=== PATIENT | male | born 1945 | race Caucasian/White ===

== ENCOUNTER 2019-09-13 11:00 | Inpatient (IN) | payer MEDICARE ==
[2019-09-15 12:25] LABS: PTT 30.7 SEC (22.9-36.1); Prothrombin Time 13.5 SEC (12.0-14.7)
[2019-09-16] MEDS ORDERED: Vancomycin 1.5 GRAM/300 ML BAG 1.5 GM in Premix Bag 1 BAG IVPB SCH (06:30)
[2019-09-16] MEDS ORDERED: Albumin 5% 0 ML ONE ×2 (06:32→12:02)
[2019-09-16] MEDS ORDERED: Dexamethasone 4 mg/ml Vial ONE (06:32)
[2019-09-16] MEDS ORDERED: Bupivacaine HCl 0.5%/Epinephrine 1:200,000/PF 30 ml Vial ONE (06:32)
[2019-09-16] MEDS ORDERED: Midazolam HCl 2 mg/2 ml Vial ONE (06:36)
[2019-09-16] MEDS ORDERED: Midazolam HCl 5 mg/5 ml Vial ONE (06:36)
[2019-09-16] MEDS ORDERED: Fentanyl 100 MCG/2 ML VIAL ONE (06:36)
[2019-09-16] MEDS ORDERED: Dexmedetomidine 200 MCG/2 ML VIAL ONE (06:37)
[2019-09-16] MEDS ORDERED: Vecuronium 10 MG VIAL ONE ×2 (06:37→13:53)
[2019-09-16] MEDS ORDERED: Heparin 10,000 UNITS/1 ML VIAL 30,000 UNITS in Sodium Chloride 0.9% 1,000 ML FS SCH (06:45)
[2019-09-16] MEDS ORDERED: Guaifenesin DM 100-10/5 ML UDCUP PO PRN (12:00)
[2019-09-16] MEDS ORDERED: hydrALAZINE 20 MG/ML VIAL SLOW IVP PRN (12:00)
[2019-09-16] MEDS ORDERED: Fentanyl 100 MCG/2 ML VIAL SLOW IVP PRN ×2 (12:00)
[2019-09-16] MEDS ORDERED: Nitroglycerin 50 MG/250 ML BOT 250 ML IVPB PRN (12:00)
[2019-09-16] MEDS ORDERED: Potassium Chloride 20 MEQ/100 ML PREMIX BAG IVPB PRN (12:00)
[2019-09-16] MEDS ORDERED: Norepinephrine 8 MG/0.9% NS 250 ML IVPB PRN (12:00)
[2019-09-16] MEDS ORDERED: DOPamine 400 MG/D5W 250 ML 250 ML IVPB PRN (12:00)
[2019-09-16] MEDS ORDERED: Magnesium 2 GM/50 ML 2 GM in Premix Bag 1 BAG IVPB SCH (12:00)
[2019-09-16] MEDS ORDERED: D5 1/2 NS w/20 mEq KCL 1,000 ML IV SCH (12:00)
[2019-09-16] MEDS ORDERED: Bisacodyl 10 MG SUPP PR PRN (12:00)
[2019-09-16] MEDS ORDERED: Mag-Al 1200 mg/1200 mg/30 ML UDCUP PO PRN (12:00)
[2019-09-16] MEDS ORDERED: Morphine 2 MG/ML SYRINGE SLOW IVP PRN (12:00)
[2019-09-16] MEDS ORDERED: Hetastarch 6% 500 ML 500 ML IVPB PRN (12:00)
[2019-09-16] MEDS ORDERED: Bisacodyl 5 MG TAB PO PRN (12:00)
[2019-09-16] MEDS ORDERED: Promethazine HCl 25 MG/ML VIAL IM PRN (12:00)
[2019-09-16] MEDS ORDERED: D5 1/2 NS w/20 mEq KCL 1,000 ML ONE (12:10)
[2019-09-16] MEDS ORDERED: Dextrose 5% in Water 1,000 ML IV PRN (12:13)
[2019-09-16] MEDS ORDERED: HUMULIN R 100 UNITS in Sodium Chloride 0.9% 100 ML IVPB SCH (12:13)
[2019-09-16] MEDS ORDERED: Insulin Regular 300 UNITS/3 ML VIAL SC PRN (12:13)
[2019-09-16] MEDS ORDERED: Dextrose 50% Abboject 50 ML SYRINGE SLOW IVP PRN (12:13)
[2019-09-16 12:15] LABS: #Eosinphils 0.1 thou/uL (0.0-0.7); #Lymphocytes 2.2 thou/uL (1.20-3.40); #Monocytes 0.6 thou/uL (0.11-0.59); #Neutrophils 15.8 thou/uL (1.40-6.50); %Basophils 0.2 % (0.0-1.0); %Eosinophils 0.5 % (0.0-10.0); %Lymphocytes 11.8 % (21.0-51.0); %Monocytes 3.4 % (0.0-10.0); %Neutrophils 84.3 % (42.0-75.0); Mean Corpuscular HGB CONC 34.9 g/dL (32.0-36.0); Mean Corpuscular Hemoglobin 31.8 pg (27.0-31.0); Mean Corpuscular Volume 91.1 fL (78.0-98.0); Platelet Count 131 thou/uL (130-400); Red Blood Cell (RBC) Count 3.47 mill/uL (4.70-6.10); White Blood Cell (WBC) Count 18.7 thou/uL (4.8-10.8)
[2019-09-16 12:19] LABS: INR-International Normal Ratio 1.5; PTT 35.4 SEC (22.9-36.1); Prothrombin Time 17.9 SEC (12.0-14.7)
--- NOTE | 2019-09-16 12:20 | OP ---
DATE OF PROCEDURE: 09/16/2019 PREOPERATIVE DIAGNOSIS: Aortic stenosis/coronary artery disease. POSTOPERATIVE DIAGNOSIS: Aortic stenosis/coronary artery disease. PROCEDURES PERFORMED: 1. Aortic valve replacement with #29 Inspiris bioprosthetic valve. 2. Coronary artery bypass grafting x3. a. Left internal mammary artery to 2.0 mm mid LAD, good conduit and target. b. Reverse saphenous vein to 2.0 mm PDA, good conduit and target. c. Reverse saphenous vein to 1.5 mm acute marginal, good conduit and target. INSTRUCTOR ADJUNCT SURGICAL TECHNICIAN SURGEON: Nithin Taylor MD. ANESTHESIA: General endotracheal. ANESTHESIOLOGIST: Jose Her MD. PUMP TIME: 114 minutes. CROSS-CLAMP TIME: 91 minutes. LOW CORE TEMPERATURE: 34 degrees Celsius perfuse. CURRICULUM COUNSELOR: Frankie Angela. DRAINS: 24-Djiboutian chest tubes x2. DRIPS: None. TRANSFUSIONS: None. DESCRIPTION OF PROCEDURE: After consent was obtained, the patient was brought to the operating room and placed in supine position on the operating room table. Appropriate central line and monitors were placed, and general endotracheal anesthesia was induced. Chest and legs were prepped and draped in the usual sterile fashion. Greater saphenous vein was harvested from the left lower extremity utilizing an endoscopic technique. Wounds were again closed in layers. Median sternotomy was performed. Left internal mammary artery was harvested as a pedicle graft. The patient was systemically heparinized. The distal pedicle was divided and infused with papaverine. Thymic fat and pericardium were divided with electrocautery. Pericardial stay sutures were placed. Aortic and atrial cannulation was performed. After adequate heparinization, retrograde prime was performed. The patient was placed on cardiopulmonary bypass. Distal targets were marked. Aortic cross-clamp was applied and antegrade sanguineous cardioplegic arrest was obtained. 1 L of antegrade cold [place] cardioplegia was given. Topical cold solution was used. Reverse saphenous vein was anastomosed to the PDA in an end-to-side fashion with running 7-0 Prolene suture. Anastomosis was tested and was hemostatic. The PL territory was explored. There was no bypassable target. The appearance of the acute marginal may have been what we were calling the PL on his films. Therefore, the acute marginal was bypassed with a 2nd segment of saphenous vein. The mammary artery was brought through a window in the pericardium and anastomosed to the LAD with a running 7-0 Prolene suture. On release of mammary clamps, good hooding of the anastomosis and good distal flow. Pedicle was secured with interrupted 6-0 Prolene suture. The mammary artery was re-clamped with a bulldog. 300 mL of antegrade [place] cardioplegia was given. A sump drain was placed through the right superior pulmonary vein. CO2 was infused in the pericardium. A Transverse hockey-stick aortotomy was performed. Aortic valve was inspected. This was a 3 leaflet valve with fused left and right commissures. The valve was heavily calcified. The valve leaflets were debrided. The annulus was decalcified. The valve measured as a 29 Inspiris valve. The valve was brought to the operative field. Pledgeted 2-0 Ethibond sutures were placed in the anulus and passed through the suturing of the valve. The valve was seated and secured with Cor-Knots. The valve seated nicely. The aortotomy was closed in a 2-layer running fashion with pledgeted 4-0 Prolene suture. Bio glue was used on the suture line. The PDA graft was anastomosed to punch site in the aorta with running 6-0 Prolene suture. Deairing maneuvers were performed. After deairing via SHANTANU, the patient was placed in Trendelenburg and the cross-clamp removed. The acute marginal graft was anastomosed to the side wall of the PDA graft. The grafts were deaired. Anastomoses were inspected and were hemostasis. The aortic suture line was hemostatic. The patient was warmed and weaned from cardiopulmonary bypass. After resumption of sinus rhythm, good hemodynamics, temperature greater than 36.5, bypass was discontinued. Transfusions were given. Decannulation was performed. The pursestring suture was secured. 24-Djiboutian chest tubes were placed, one in the mediastinum and one in the left pleural cavity. After adequate hemostasis had been obtained within the mediastinum, the sternum was treated with vancomycin paste and closed with #7 wire. Sternum was treated with platelet rich plasma. Wire was twisted and buried. Wounds were irrigated and treated with platelet poor plasma and closed in multiple layers. Needle, sponge, and instrument counts were all reported as correct at the end of the procedure. The patient was awakened, extubated in the operating room, transferred to the intensive care unit in stable condition. Job ID: [id number] [facility]
[2019-09-16 12:36] LABS: Anion Gap 8 mmol/L (10-20); BUN (Urea Nitrogen) 17 mg/dL (8.4-25.7); Calc. Creatinine Clearance 92 mL/min (70-130); Calcium 6.9 mg/dL (7.8-10.44); Carbon Dioxide 22 mmol/L (23-31); Chloride 114 mmol/L (98-107); Estimated GFR-MDRD 77; Glucose 153 mg/dL (83-110); Potassium 4.2 mmol/L (3.5-5.1); Sodium 140 mmol/L (136-145)
[2019-09-16] MEDS: Ketorolac Tromethamine 30 MG/ML VIAL IVP SCH ×3 (12:52→23:51)
--- NOTE | 2019-09-16 13:50 | RAD ---
PORTABLE CHEST 1 VIEW: Date: 09/16/19 Time: 1146 hours HISTORY: Postop open heart surgery. FINDINGS/IMPRESSION: Comparison made with exam from previous day. Interval changes of median sternotomy and valvular replacement seen. The heart size is stable. There is mild pulmonary vascular congestion. There is a right subclavian central line with tip in the proje ction of the right atrium. Left-sided chest tube is noted. There is mild pulmonary vascular congestio n. No pneumothoraces or large effusions are seen. POS: [facility]
[2019-09-16] MEDS ORDERED: Ondansetron PF 4 MG/2 ML Vial ONE (13:53)
[2019-09-16] MEDS ORDERED: Heparin 5,000 UNITS/ML VIAL ONE (13:53)
[2019-09-16] MEDS ORDERED: Sodium Bicarb 50 MEQ/50 ML Abboject 8.4% SYRINGE ONE (13:53)
[2019-09-16] MEDS ORDERED: Glycopyrrolate 0.2 MG/ML 5 ML SYRINGE ONE (13:53)
[2019-09-16] MEDS ORDERED: Lidocaine 1% PF 5 ML VIAL ONE (13:53)
[2019-09-16] MEDS ORDERED: Heparin 30,000 units/30 ml VIAL ONE (13:53)
[2019-09-16] MEDS ORDERED: Magnesium Sulfate 1 GM/2 ML VIAL ONE (13:53)
[2019-09-16] MEDS ORDERED: Nitroglycerin 50 MG/250 ML BOT ONE (13:53)
[2019-09-16] MEDS ORDERED: Lidocaine 2% PF 5 ML VIAL ONE (13:53)
[2019-09-16] MEDS ORDERED: Dexamethasone 20 MG/5 ML VIAL ONE (13:53)
[2019-09-16] MEDS ORDERED: Papaverine 60 MG/2 ML VIAL ONE (13:53)
[2019-09-16] MEDS ORDERED: Thrombin 5000 UNITS/5 ML VIAL ONE (13:53)
[2019-09-16] MEDS ORDERED: PHENYLEPHRINE-NS 100 MCG/ML 10 ML SYRINGE ONE (13:53)
[2019-09-16] MEDS ORDERED: Calcium Chloride 1 GM/10 ML Abboject SYRINGE ONE (13:53)
[2019-09-16] MEDS ORDERED: Ketorolac Tromethamine 30 MG/ML VIAL ONE (13:53)
[2019-09-16] MEDS ORDERED: ePHEDrine/0.9% NaCl/PF SYRINGE 50 mg/10 ml ONE (13:53)
[2019-09-16] MEDS ORDERED: Potassium Chloride 60 MEQ/30 ML VIAL ONE (13:53)
[2019-09-16] MEDS ORDERED: Aminocaproic Acid 5 GM/20 ML VIAL ONE (13:53)
[2019-09-16] MEDS ORDERED: Cardioplegic Soln 1,000 ML BAG ONE (13:53)
[2019-09-16 14:09] VITALS: BMI 27.9
[2019-09-16] MEDS: CEFAZOLIN 2 GM in Premix Bag 1 BAG IVPB SCH ×2 (14:10→21:04)
[2019-09-16] MEDS: Ondansetron PF 4 MG/2 ML Vial IVP PRN (14:25)
[2019-09-16] MEDS: Acetaminophen 325 MG TAB PO PRN (16:44)
[2019-09-16] MEDS: Vancomycin 1.5 GRAM/300 ML BAG 1.5 GM in Premix Bag 1 BAG IVPB SCH (17:59)
[2019-09-16 18:01] LABS: Hemoglobin 11.5 g/dL (14.0-18.0)
[2019-09-16 18:19] LABS: Potassium 4.6 mmol/L (3.5-5.1)
[2019-09-16] MEDS: traMADol HCl 50 MG TAB PO PRN (20:56)
[2019-09-16] MEDS ORDERED: Famotidine/PF 20 mg/2ml Vial SLOW IVP SCH (21:00)
[2019-09-17] MEDS: traMADol HCl 50 MG TAB PO PRN ×3 (03:04→23:58)
[2019-09-17 03:26] LABS: #Lymphocytes 0.6 thou/uL (1.20-3.40); #Monocytes 0.7 thou/uL (0.11-0.59); #Neutrophils 8.8 thou/uL (1.40-6.50); %Lymphocytes 5.6 % (21.0-51.0); %Monocytes 6.8 % (0.0-10.0); %Neutrophils 87.6 % (42.0-75.0); Hemoglobin 9.7 g/dL (14.0-18.0); Mean Corpuscular HGB CONC 34.2 g/dL (32.0-36.0); Mean Corpuscular Volume 90.5 fL (78.0-98.0); Platelet Count 105 thou/uL (130-400); RBC Distribution Width 11.8 % (11.5-14.5); Red Blood Cell (RBC) Count 3.12 mill/uL (4.70-6.10); White Blood Cell (WBC) Count 10.1 thou/uL (4.8-10.8)
[2019-09-17 03:50] LABS: Anion Gap 8 mmol/L (10-20); BUN (Urea Nitrogen) 15 mg/dL (8.4-25.7); Calc. Creatinine Clearance 85 mL/min (70-130); Calcium 8.2 mg/dL (7.8-10.44); Carbon Dioxide 25 mmol/L (23-31); Chloride 109 mmol/L (98-107); Estimated GFR-MDRD 70; Glucose 128 mg/dL (83-110); Potassium 4.4 mmol/L (3.5-5.1); Sodium 138 mmol/L (136-145)
[2019-09-17] MEDS: Ketorolac Tromethamine 30 MG/ML VIAL IVP SCH ×4 (05:23→23:57)
[2019-09-17] MEDS: CEFAZOLIN 2 GM in Premix Bag 1 BAG IVPB SCH (05:24)
[2019-09-17] MEDS: Vancomycin 1.5 GRAM/300 ML BAG 1.5 GM in Premix Bag 1 BAG IVPB SCH (05:25)
--- NOTE | 2019-09-17 07:58 | RAD ---
Chest AP view INDICATION: Status post open-heart surgery COMPARISON: September 16, 2019 at 11:46 AM FINDINGS: Lungs:There is worsening bibasilar atelectasis Cardiac silhouette:Cardiomegaly persists. Valvular replacement and midline sternotomy changes are sta ble. Pulmonary vasculature:Mild pulmonary vascular congestion persists Pleural spaces:There is worsening small left pleural effusion. No pneumothorax is evident. Left-sided thoracostomy tube is unchanged. Upper abdomen:No abnormality seen. Osseous structures: No acute osseous abnormality. Additional findings:Right subclavian central venous catheter and midline mediastinal drain is stable. IMPRESSION: Worsening left sided pleural effusion with worsening bibasilar atelectasis. Stable cardio megaly with mild pulmonary vascular congestion. Stable tubes and lines.
[2019-09-17] MEDS: Aspirin 325 MG TAB PO SCH (08:23)
[2019-09-17] MEDS: Magnesium 2 GM/50 ML 2 GM in Premix Bag 1 BAG IVPB SCH (08:23)
[2019-09-17] MEDS: Acetaminophen 325 MG TAB PO PRN (08:23)
--- NOTE | 2019-09-17 09:14 | CON ---
DATE OF CONSULTATION: HISTORY OF PRESENT ILLNESS: A 73-year-old gentleman, status post AVR. He is in the ICU post surgery, reason for consult. The patient is a nonsmoker. No prior history of pneumonia, TB, or asthma. Very healthy. PAST MEDICAL HISTORY: Pertinent for prostate cancer. PAST SURGICAL HISTORY: Appendix and prostate. CHRONIC MEDICATIONS: 1. Omeprazole 20. 2. Lupron 3.75. ALLERGIES: NONE. SOCIAL HISTORY: Unremarkable. FAMILY HISTORY: Unremarkable. PHYSICAL EXAMINATION: GENERAL: In the ICU, he is on dopamine. VITAL SIGNS: Blood pressure 120/80, pulse 71, sats 98%, and respirations 18. CHEST: No wheezing or crackles. CARDIAC: Normal S1 and S2. No gallops. ABDOMEN: No masses. LABORATORY DATA: Lytes are normal. White count 10,000, hemoglobin and hematocrit unremarkable. X-ray shows small pleural effusion. IMPRESSION: 1. The patient is status post aortic valve replacement and bypass x3. 2. History of prostate cancer. 3. Hypertension. PLAN: Continue aggressive PT, supportive care. Pulmonary will follow while in the ICU. Consultation note, 70 minutes, 50% of direct patient care. Job ID: [id number]
[2019-09-17] MEDS: Ondansetron PF 4 MG/2 ML Vial IVP PRN (16:30)
--- NOTE | 2019-09-17 16:55 | PDOC.CPN ---
- Subjective Date: 09/17/19 Time: 15:00 - Review of Systems Respiratory: denies: cough, shortness of breath Cardiovascular: reports: chest pain (Cpain due to surgery,mainly back pain) Gastrointestinal: denies: nausea, abd pain Musculoskeletal: reports: pain - Objective Allergies/Adverse Reactions: Allergies Allergy/AdvReac Type Severity Reaction Status Date / Time No Known Allergies Allergy Verified 09/15/19 11:21 Visit Medications: Current Medications Acetaminophen (Tylenol) 650 mg PO Q6H PRN PRN Reason: Headache/Fever Or Mild Pain Last Admin: 09/17/19 08:23 Dose: 650 mg Al Hydroxide/Mg Hydroxide (Maalox) 30 ml PO Q4H PRN PRN Reason: Indigestion Albumin Human (Albumin 5%) 25 gm IVPB NOW [facility] Stop: 09/17/19 18:45 Last Admin: 09/17/19 14:46 Dose: 25 gm Albuterol/Ipratropium (Duoneb) 3 ml NEB [id number] PRN PRN Reason: SHORTNESS OF BREATH Aspirin (Aspirin) 325 mg PO DAILY [facility] Last Admin: 09/17/19 08:23 Dose: 325 mg Bisacodyl (Dulcolax) 10 mg PO Q12H PRN PRN Reason: Constipation Last Admin: 09/17/19 16:50 Dose: 10 mg Bisacodyl (Dulcolax) 10 mg [place] Q12H PRN PRN Reason: Constipation Fentanyl (Sublimaze) 25 mcg SLOW IVP Q2H PRN PRN Reason: Moderate Pain (4-6) Stop: 09/18/19 11:50 Fentanyl (Sublimaze) 50 mcg SLOW IVP Q2H PRN PRN Reason: Severe Pain (7-10) Stop: 09/18/19 11:50 Guaifenesin/Dextromethorphan (Robitussin Dm) 15 ml PO Q4H PRN PRN Reason: Cough Hydralazine HCl (Apresoline) 10 mg SLOW IVP Q6H PRN PRN Reason: To Maintain SBP< 140mmHG Dopamine HCl/Dextrose (Dopamine 400 Mg/D5w 250 Ml) 250 mls @ 0 mls/hr IVPB PRN PRN; Protocol PRN Reason: To maintain SBP > 90 mmHG Last Admin: 09/16/19 14:31 Dose: 250 mls Magnesium Sulfate 2 gm/ Device 50 mls @ 50 mls/hr IVPB QAM [facility] Stop: 09/18/19 09:59 Last Admin: 09/17/19 08:23 Dose: 50 mls Ketorolac Tromethamine (Toradol) 30 mg IVP Q6HR [facility] Stop: 09/19/19 12:01 Last Admin: 09/17/19 12:01 Dose: 30 mg Ondansetron HCl (Zofran) 4 mg IVP Q6H PRN PRN Reason: Nausea/Vomiting Last Admin: 09/17/19 16:30 Dose: 4 mg Pantoprazole Sodium (Protonix) 40 mg PO DAILY [facility] Last Admin: 09/17/19 08:22 Dose: 40 mg Potassium Chloride (Kcl) 20 meq IVPB PRN PRN PRN Reason: K level </= 4.0 Promethazine HCl (Phenergan) 6.25 mg IM Q4H PRN PRN Reason: Nausea/Vomiting Sodium Chloride (Flush - Normal Saline) 10 ml IVF PRN PRN PRN Reason: Saline Flush Tramadol HCl (Ultram) 50 mg PO Q6H PRN PRN Reason: Pain Last Admin: 09/17/19 16:49 Dose: 50 mg Vital Signs & Weight: Vital Signs Temp Pulse Ox 09/17/19 12:00 98.7 F 09/17/19 08:00 99 09/17/19 07:08 97 09/17/19 07:00 98.5 F Weight 211 lb 3.245 oz - Quality Measures Condition: Coronary Artery Disease CV meds: Beta Arthur: No (start when BP stable. ), GALEN/ARB: No (as above), Statin: No, ASA: No - Physical Exam HEENT: mucus membranes moist Neck: no JVD/HJR Cardiac: regular rate and rhythm, no murmur, regular rate, regular rhythm Lungs: no wheezes, no rhonchi, other (decreased BS bases L>R) Neuro: grossly intact Abdomen: soft, decreased bowel sounds Extremities: no edema Musculoskeletal: normal range of motion - Labs Result Diagrams: 09/17/19 03:10 09/17/19 03:10 - Telemetry Sinus rhythms and dysrhythmias: sinus rhythm - Assessment/Plan Assessment/Plan: 1. S/P AVR + CABG. for 3 vessel CAD and severe . #29 AVR implanted. Bioprosthetic valve. Start low dose betablockers when BP tolerates. 2. Mildly elevated BS.
[2019-09-18 04:30] LABS: #Monocytes 0.6 thou/uL (0.11-0.59); #Neutrophils 6.1 thou/uL (1.40-6.50); %Basophils 0.1 % (0.0-1.0); %Eosinophils 0.4 % (0.0-10.0); %Lymphocytes 12.4 % (21.0-51.0); %Monocytes 7.7 % (0.0-10.0); %Neutrophils 79.4 % (42.0-75.0); Hemoglobin 8.3 g/dL (14.0-18.0); Mean Corpuscular HGB CONC 35.1 g/dL (32.0-36.0); Mean Corpuscular Hemoglobin 32.4 pg (27.0-31.0); Mean Corpuscular Volume 92.1 fL (78.0-98.0); Mean Platelet Volume 8.1 fL (7.4-10.4); Platelet Count 78 thou/uL (130-400); Red Blood Cell (RBC) Count 2.56 mill/uL (4.70-6.10); White Blood Cell (WBC) Count 7.7 thou/uL (4.8-10.8)
[2019-09-18 04:45] LABS: Anion Gap 8 mmol/L (10-20); BUN (Urea Nitrogen) 19 mg/dL (8.4-25.7); Calc. Creatinine Clearance 71 mL/min (70-130); Calcium 7.9 mg/dL (7.8-10.44); Carbon Dioxide 24 mmol/L (23-31); Chloride 105 mmol/L (98-107); Estimated GFR-MDRD 53; Glucose 103 mg/dL (83-110); Sodium 133 mmol/L (136-145)
[2019-09-18] MEDS: Ketorolac Tromethamine 30 MG/ML VIAL IVP SCH (06:26)
--- NOTE | 2019-09-18 08:53 | PRG ---
DATE OF SERVICE: 09/18/2019 SUBJECTIVE: Status post CABG, AVR, still having significant chest pain, but no shortness of breath. OBJECTIVE: VITAL SIGNS: Blood pressure 136/80, pulse 80, respirations 18. CHEST: Decreased breath sounds. No wheezing. CARDIAC: Normal S1 and S2. No gallops. ABDOMEN: No masses. LABORATORY DATA: Creatinine 1.3. White count 7000. IMAGING STUDIES: X-ray shows blunting left costophrenic angle. ASSESSMENT: Coronary artery bypass graft, aortic valve replacement, postoperative pain. PLAN: Continue supportive care, PT, neb treatments as tolerated. Disposition as per Surgery. Job ID: [id number]
--- NOTE | 2019-09-18 09:50 | RAD ---
CHEST 1 VIEW: COMPARISON: 09/17/2019. HISTORY: Status post open heart surgery. FINDINGS: Redemonstration of prosthetic aortic valve, sternotomy wires, and right-sided vascular catheter. Per sistent bibasilar hazy opacities due to pleural effusion. Adjacent parenchymal changes may represent atelectasis or aspiration. Pneumonia cannot be excluded. No pneumothorax. IMPRESSION: Findings compatible with recent open heart surgery. Persistent bibasilar opacities as described [place]. POS: [facility]
[2019-09-18] MEDS: traMADol HCl 50 MG TAB PO PRN ×2 (09:56→20:38)
[2019-09-18] MEDS: Magnesium 2 GM/50 ML 2 GM in Premix Bag 1 BAG IVPB SCH (09:57)
[2019-09-18] MEDS: Aspirin 325 MG TAB PO SCH (09:58)
--- NOTE | 2019-09-18 11:07 | PRG ---
DATE OF SERVICE: 09/18/2019 SUBJECTIVE: Mr. Varghese is resting comfortably. He underwent bypass surgery previously. He is recovering from that. No chest pain or pressure unless he takes a deep breath. OBJECTIVE: VITAL SIGNS: Blood pressure 136/80, pulse 80. LUNGS: Clear. CARDIAC: Normal S1, normal S2. ASSESSMENT AND PLAN: 1. Status post bypass surgery, doing well. 2. Continue aspirin, also receiving magnesium, still on low-dose dopamine. According to the notes, the patient continues to recover. Job ID: [id number]
[2019-09-18] MEDS ORDERED: Metolazone 5 MG TAB PO SCH (11:38)
[2019-09-18] MEDS: Furosemide 40 MG/4 ML VIAL SLOW IVP SCH (14:14)
[2019-09-18] MEDS: Potassium Chloride 20 MEQ TAB PO SCH (17:34)
[2019-09-18] MEDS: Iron Polysaccharides Complex 150 MG CAP PO SCH (20:39)
[2019-09-19] MEDS: traMADol HCl 50 MG TAB PO PRN ×3 (03:40→21:10)
[2019-09-19] MEDS: Furosemide 40 MG/4 ML VIAL SLOW IVP SCH ×2 (05:28→14:12)
[2019-09-19 06:02] LABS: Anion Gap 9 mmol/L (10-20); BUN (Urea Nitrogen) 20 mg/dL (8.4-25.7); Calc. Creatinine Clearance 78 mL/min (70-130); Calcium 8.5 mg/dL (7.8-10.44); Carbon Dioxide 28 mmol/L (23-31); Chloride 102 mmol/L (98-107); Estimated GFR-MDRD 61; Glucose 102 mg/dL (83-110); Potassium 4.3 mmol/L (3.5-5.1); Sodium 135 mmol/L (136-145)
[2019-09-19] MEDS: Potassium Chloride 20 MEQ TAB PO SCH ×2 (08:10→16:32)
[2019-09-19] MEDS: Aspirin 325 MG TAB PO SCH (08:10)
[2019-09-19 08:26] LABS: #Eosinphils 0.1 thou/uL (0.0-0.7); #Lymphocytes 0.8 thou/uL (1.20-3.40); #Monocytes 0.7 thou/uL (0.11-0.59); #Neutrophils 6.9 thou/uL (1.40-6.50); %Basophils 0.2 % (0.0-1.0); %Eosinophils 0.7 % (0.0-10.0); %Lymphocytes 9.6 % (21.0-51.0); %Neutrophils 81.4 % (42.0-75.0); Hemoglobin 9.6 g/dL (14.0-18.0); Mean Corpuscular HGB CONC 34.6 g/dL (32.0-36.0); Mean Corpuscular Hemoglobin 31.1 pg (27.0-31.0); Mean Corpuscular Volume 90.1 fL (78.0-98.0); Mean Platelet Volume 8.4 fL (7.4-10.4); Platelet Count 116 thou/uL (130-400); Red Blood Cell (RBC) Count 3.09 mill/uL (4.70-6.10); White Blood Cell (WBC) Count 8.5 thou/uL (4.8-10.8)
--- NOTE | 2019-09-19 10:20 | RAD ---
Exam: Chest one view HISTORY:Status post open heart surgery Comparison: 09/18/2019 FINDINGS: Cardiac silhouette:Persistent upper normal cardiac silhouette. Stable sternotomy wires, aortic valve and right-sided central venous catheter. Aorta: Unremarkable Pulmonary vessels: Normal Costophrenic angles: Persistent left-sided pleural effusion with adjacent parenchymal changes. LUNGS: Persistent bibasilar opacities. Pneumothorax: None Osseous abnormalities: None IMPRESSION: 1. No significant interval change. 2. Findings compatible with recent open heart surgery.
[2019-09-19] MEDS: Iron Polysaccharides Complex 150 MG CAP PO SCH ×2 (12:57→21:10)
--- NOTE | 2019-09-19 13:04 | PRG ---
DATE OF SERVICE: 09/19/2019 SUBJECTIVE: This morning, he is doing better and less short of breath. OBJECTIVE: VITAL SIGNS: Saturations are 98% on room air, temperature 98, pulse 115, blood pressure 104/56. CHEST: Decreased breath sounds. No wheezing. CARDIAC: Normal S1 and S2. No gallops. ABDOMEN: No masses. LABORATORY DATA: Unremarkable. X-ray shows a small left pleural effusion. ASSESSMENT: Left pleural effusion, status post coronary artery bypass graft and aortic valve replacement. PLAN: Continue present neb treatment as needed. We will follow. Job ID: [id number]
--- NOTE | 2019-09-19 16:18 | EKG ---
Test Reason : S/P CABG Blood Pressure : / mmHG Vent. Rate : 057 BPM Atrial Rate : 057 BPM P-R Int : 188 ms QRS Dur : 114 ms QT Int : 494 ms P-R-T Axes : 027 -46 091 degrees QTc Int : 480 ms Sinus bradycardia Left anterior fascicular block Left ventricular hypertrophy with repolarization abnormality Prolonged QT Abnormal ECG When compared with ECG of 25-NOV-2010 07:21, Significant changes have occurred Confirmed by DR. Yadira GARCIA ([id number]) on 09/19/2019 4:17:46 PM Referred By: HILL MILLER Confirmed By:DR. Yadira GARCIA
[2019-09-20] MEDS: Furosemide 40 MG/4 ML VIAL SLOW IVP SCH (05:58)
[2019-09-20 06:39] LABS: #Eosinphils 0.1 thou/uL (0.0-0.7); #Lymphocytes 1.1 thou/uL (1.20-3.40); #Monocytes 0.9 thou/uL (0.11-0.59); %Basophils 0.2 % (0.0-1.0); %Eosinophils 1.6 % (0.0-10.0); %Lymphocytes 13.5 % (21.0-51.0); %Monocytes 10.5 % (0.0-10.0); %Neutrophils 74.2 % (42.0-75.0); Hemoglobin 9.7 g/dL (14.0-18.0); Mean Corpuscular HGB CONC 34.6 g/dL (32.0-36.0); Mean Corpuscular Volume 89.6 fL (78.0-98.0); Mean Platelet Volume 8.4 fL (7.4-10.4); Platelet Count 149 thou/uL (130-400); Red Blood Cell (RBC) Count 3.14 mill/uL (4.70-6.10)
[2019-09-20 07:02] LABS: Anion Gap 9 mmol/L (10-20); BUN (Urea Nitrogen) 24 mg/dL (8.4-25.7); Calc. Creatinine Clearance 72 mL/min (70-130); Calcium 9.1 mg/dL (7.8-10.44); Carbon Dioxide 31 mmol/L (23-31); Chloride 97 mmol/L (98-107); Estimated GFR-MDRD 59; Glucose 99 mg/dL (83-110); Potassium 4.2 mmol/L (3.5-5.1); Sodium 133 mmol/L (136-145)
--- NOTE | 2019-09-20 08:01 | RAD ---
FRONTAL RADIOGRAPH CHEST: DATE: 09/20/2019. COMPARISON: 09/19/2019. HISTORY: Evaluate chest following midline sternotomy. FINDINGS: Persistent dense pleural and parenchymal opacity noted in the left lung base. Stable right-sided vas cular catheter. No pneumothorax. Right lung is clear. Stable midline sternotomy wires. Mechanical valve unchanged. IMPRESSION: No significant interval change. POS: [facility]
[2019-09-20] MEDS: Potassium Chloride 20 MEQ TAB PO SCH (09:11)
[2019-09-20] MEDS: traMADol HCl 50 MG TAB PO PRN ×3 (09:12→23:54)
[2019-09-20] MEDS: Aspirin 325 MG TAB PO SCH (09:12)
--- NOTE | 2019-09-20 09:14 | PDOC.CPN ---
- Subjective Date: 09/20/19 Time: 08:30 Interval history: The pt seen and examined. No overnight events. No cardiac complaints. Urine outpt yesterday was > 3000ml. - Objective Allergies/Adverse Reactions: Allergies Allergy/AdvReac Type Severity Reaction Status Date / Time No Known Allergies Allergy Verified 09/15/19 11:21 Visit Medications: Current Medications Al Hydroxide/Mg Hydroxide (Maalox) 30 ml PO Q4H PRN PRN Reason: Indigestion Albuterol/Ipratropium (Duoneb) 3 ml NEB [id number] PRN PRN Reason: SHORTNESS OF BREATH Aspirin (Aspirin) 325 mg PO DAILY [facility] Last Admin: 09/19/19 08:10 Dose: 325 mg Bisacodyl (Dulcolax) 10 mg PO Q12H PRN PRN Reason: Constipation Last Admin: 09/17/19 16:50 Dose: 10 mg Bisacodyl (Dulcolax) 10 mg [place] Q12H PRN PRN Reason: Constipation Furosemide (Lasix) 40 mg SLOW IVP 0600,1400 [facility] Last Admin: 09/20/19 05:58 Dose: 40 mg Guaifenesin/Dextromethorphan (Robitussin Dm) 15 ml PO Q4H PRN PRN Reason: Cough Ondansetron HCl (Zofran) 4 mg IVP Q6H PRN PRN Reason: Nausea/Vomiting Last Admin: 09/17/19 16:30 Dose: 4 mg Pantoprazole Sodium (Protonix) 40 mg PO DAILY [facility] Last Admin: 09/19/19 08:10 Dose: 40 mg Polysaccharide Iron Complex (Niferex) 150 mg PO BID [facility] Last Admin: 09/19/19 21:10 Dose: 150 mg Potassium Chloride (K-Dur) 40 meq PO BID[facility] Last Admin: 09/19/19 16:32 Dose: 40 meq Sodium Chloride (Flush - Normal Saline) 10 ml IVF PRN PRN PRN Reason: Saline Flush Tramadol HCl (Ultram) 50 mg PO Q6H PRN PRN Reason: Pain Last Admin: 09/19/19 21:10 Dose: 50 mg Vital Signs & Weight: Vital Signs Temp Pulse Resp BP Pulse Ox 09/20/19 09:04 97.9 F 91 18 94/54 L 91 L 09/20/19 03:30 98.7 F 77 18 108/59 L 99 Weight 203 lb - Quality Measures Condition: Coronary Artery Disease CV meds: Beta Arthur: No (start when BP stable. ), GALEN/ARB: No (as above), Statin: No, ASA: No - Physical Exam General: alert & oriented x3 HEENT: mucus membranes moist Neck: supple neck Cardiac: regular rate and rhythm, S1/S2 Lungs: clear to auscultation, decreased breath sounds Neuro: cranial nerve 2-12 intact Abdomen: unremarkable Extremities: no cyanosis Musculoskeletal: normal range of motion - Labs Result Diagrams: 09/20/19 06:00 09/20/19 06:00 - Assessment/Plan Assessment/Plan: 1. S/P Bioprosthetic AV Replacement + CABG x3 with ANTUNEZ-LAD, RSVG-PDA, and RSVG- acute Merginal on 09/16/2019 - stable; will start low dose betablockers when BP tolerates. 2. Hyponatremia - will change Lasix from IV to PO from today for hyponatremia and hypotension. Hx of Prostate Cancer MAR reviewed
--- NOTE | 2019-09-20 10:08 | PRG ---
DATE OF SERVICE: 09/20/2019 SUBJECTIVE: Matt Varghese, this morning, still having pain when he takes a deep breath. OBJECTIVE: VITAL SIGNS: Saturations 91% on room air, temperature 98, pulse respiratory rate 18, and blood pressure 94/54. CHEST: No wheezing, crackles, or rubs. CARDIAC: Normal S1 and S2. No gallops. ABDOMEN: No masses. LABORATORY DATA: Unremarkable. Creatinine 1.2. IMPRESSION: 1. Status post coronary artery bypass grafting, aortic valve replacement. 2. Small left pleural effusion. PLAN: I ordering scheduled neb treatments for the patient to see whether it helps his breathing. Otherwise, supportive care, PT. We will follow. Job ID: [id number]
[2019-09-20] MEDS: Iron Polysaccharides Complex 150 MG CAP PO SCH ×2 (13:42→22:08)
[2019-09-20] MEDS ORDERED: Furosemide 40 MG TAB PO SCH (14:00)
--- NOTE | 2019-09-20 15:58 | PQF ---
REFUGIO DODD III, CHARLES H MD [id number] CLINICAL DOCUMENTATION IMPROVEMENT CLARIFICATION FORM: ICD-10 Updated PLEASE DO AN ADDENDUM TO THE PROGRESS NOTE WITH ANY DOCUMENTATION UPDATES OR ADDITIONS AND CARRY THROUGH TO DC SUMMARY. THANK YOU. DATE: 09/20/19 ATTN: Dr. Lane Please exercise your independent, professional judgment in responding to the clarification form. Clinical indicators are provided on the bottom of this form for your review Please check appropriate box(s): [ ] Acute Renal Failure (ARF) / Acute Kidney Injury (MATT) [ ] Other Etiology or underlying conditions related to the diagnosis of ARF/ MATT: [ ] Acute renal insufficiency [ ] Other diagnosis [ x ] Unable to determine In addition, please specify: Present on Admission (POA): [ ] Yes [ ] No [ ] Unable to determine National Kidney Foundation Guidelines for CKD Staging Stage I Kidney damage with normal or increased GFRGFR > 90 Stage IIKidney damage with mildly decreased GFRGFR 60-89 Stage III Kidney damage with moderately decreased GFRGFR 30-59 Stage IVKidney damage with severely decreased GFRGFR 16-29 Stage VKidney failureGFR<15 ESRDEnd Stage Renal DiseaseOn dialysis Acute Renal Failure/Acute Kidney Failure defined as: Increases in SCr by (>) 0.3 mg/dl within 48 hours OR- Increases in SCr by (>) 1.5 times baseline, known or presumed to have occurred within the prior 7 days OR- Urine volume < 0.5 ml/kg/hour for 6 hours (KDIGO supplement 2012 for RIFLE/LAUREN criteria) For continuity of documentation, please document condition throughout progress notes and discharge summary. Thank You. CLINICAL INDICATORS - SIGNS / SYMPTOMS / LABS / RESULTS AND LOCATION IN MR Abnormal labs (BUN, creatinine, K+, creatinine clearance, low GFR)--> lab: BUN 17, CREAT 0.96, GFR 77; 09/17 BUN 15, CREAT 1.05, GFR 70 09/18 BUN 19, CREAT 1.33, GFR 53; 09/19 BUN 20, CREAT 1.17, GFR 61; 09/20 BUN 24 , CREAT 1.22, GFR 59 09/18 TCV POD2 see chart progress note: "pre-op creat 1.29" 09/20 Arata: "Hypotension" 09/16 BP down to 87/54 per VS 09/16 Card(Dawn-see chart progress note):"BP down on dopamine" RISK FACTORS / RESULTS AND LOCATION IN MR Use of NSAIDS, diuretics--> Toradol 30mg IVP q6h 09/16-09/18, Lasix 40mg IV BID 09/18-09/20 per orders TREATMENTS / RESULTS AND LOCATION IN MR 09/18-09/20 Lasix 40 mg IV bid to PO 09/20 per orders Daily BMP 09/16 to date per orders Dopamine drip 09/16 to 09/18 per orders Toradol IV dc'd 09/19 per orders (This form is maintained as a part of the permanent medical record) 2014 [email or web address], [employer] All Rights Reserved Kasey Florence, RN, BSN, CCDS [email or web address]
[2019-09-20] MEDS ORDERED: Potassium Chloride 20 MEQ TAB PO SCH (17:00)
[2019-09-21] MEDS: traMADol HCl 50 MG TAB PO PRN ×2 (05:51→21:00)
[2019-09-21] MEDS ORDERED: Furosemide 40 MG TAB PO SCH (07:30)
[2019-09-21] MEDS ORDERED: Potassium Chloride 20 MEQ TAB PO SCH (08:00)
--- NOTE | 2019-09-21 08:35 | PDOC.CPN ---
- Subjective Date: 09/21/19 Time: 08:30 Interval history: The pt seen and examined. No overnight events. No cardiac complaints. His HR went up to high 100s with movement. - Objective Allergies/Adverse Reactions: Allergies Allergy/AdvReac Type Severity Reaction Status Date / Time No Known Allergies Allergy Verified 09/15/19 11:21 Visit Medications: Current Medications Al Hydroxide/Mg Hydroxide (Maalox) 30 ml PO Q4H PRN PRN Reason: Indigestion Albuterol/Ipratropium (Duoneb) 3 ml NEB [id number] PRN PRN Reason: SHORTNESS OF BREATH Last Admin: 09/20/19 09:47 Dose: 3 ml Albuterol/Ipratropium (Duoneb) 3 ml NEB TID-RT [facility] Last Admin: 09/21/19 06:49 Dose: 3 ml Aspirin (Aspirin) 325 mg PO DAILY [facility] Last Admin: 09/20/19 09:12 Dose: 325 mg Bisacodyl (Dulcolax) 10 mg PO Q12H PRN PRN Reason: Constipation Last Admin: 09/17/19 16:50 Dose: 10 mg Bisacodyl (Dulcolax) 10 mg [place] Q12H PRN PRN Reason: Constipation Furosemide (Lasix) 40 mg PO DAILY-AC [facility] Guaifenesin/Dextromethorphan (Robitussin Dm) 15 ml PO Q4H PRN PRN Reason: Cough Ondansetron HCl (Zofran) 4 mg IVP Q6H PRN PRN Reason: Nausea/Vomiting Last Admin: 09/17/19 16:30 Dose: 4 mg Pantoprazole Sodium (Protonix) 40 mg PO DAILY [facility] Last Admin: 09/20/19 09:11 Dose: 40 mg Potassium Chloride (K-Dur) 20 meq PO QAM-WM [facility] Sodium Chloride (Flush - Normal Saline) 10 ml IVF PRN PRN PRN Reason: Saline Flush Tramadol HCl (Ultram) 50 mg PO Q6H PRN PRN Reason: Pain Last Admin: 09/21/19 05:51 Dose: 50 mg Vital Signs & Weight: Vital Signs Temp Pulse Resp BP Pulse Ox 09/21/19 07:40 98.2 F 90 17 97/50 L 95 09/21/19 06:49 78 18 98 09/21/19 04:00 97.8 F 81 20 110/59 L 97 09/20/19 23:52 84 108/64 Weight 198 lb 8 oz - Quality Measures Condition: Coronary Artery Disease CV meds: Beta Arthur: No (start when BP stable. ), GALEN/ARB: No (as above), Statin: No, ASA: No - Physical Exam General: alert & oriented x3 HEENT: mucus membranes moist Neck: supple neck Cardiac: regular rate and rhythm, S1/S2 Lungs: clear to auscultation, decreased breath sounds Neuro: cranial nerve 2-12 intact Skin: clear - Labs Result Diagrams: 09/20/19 06:00 09/20/19 06:00 - Telemetry Sinus rhythms and dysrhythmias: sinus rhythm - Assessment/Plan Assessment/Plan: 1. S/P Bioprosthetic AV Replacement, (#29 bioprosthetic valve) + CABG x3 with ANTUNEZ-LAD, RSVG-PDA, and RSVG-acute Marginal on 09/16/2019 - stable; will start low dose betablockers when BP tolerates. 2. Hyponatremia - will change Lasix from IV to PO from today for hyponatremia and hypotension. 3. Hx of Prostate Cancer 4. Hypotension - stable since Lasix was changed to QD. MAR reviewed Pt. seen and eval. by me. I agree with the A/P by the METALWORKER. He doesn't feel well and seems to have orthostatic hypotension, this is likely due to volume depletion and anemia. He is walking some but still feels lightheaded. Orthostatics needed to be checked by PT. Chest clear. RRR. No edema.. GJMays
--- NOTE | 2019-09-21 09:15 | PRG ---
DATE OF SERVICE: 09/21/2019 SUBJECTIVE: This morning, he is better, less pain, less shortness of breath. OBJECTIVE: VITAL SIGNS: Saturations 100% on room air, temperature 98, pulse 90, and blood pressure 97/50. CHEST: No wheezing or crackles. CARDIAC: Normal S1, S2. No gallops. ABDOMEN: No masses. IMPRESSION: Status post coronary artery bypass graft, small pleural effusion. Dyspnea improved. PLAN: Continue PT, supportive care. DISPOSITION: As per Cardiology. Job ID: [id number]
[2019-09-21] MEDS: Aspirin 325 MG TAB PO SCH (09:24)
[2019-09-22] MEDS: traMADol HCl 50 MG TAB PO PRN ×3 (04:30→21:39)
[2019-09-22 05:17] LABS: #Eosinphils 0.2 thou/uL (0.0-0.7); #Lymphocytes 1.1 thou/uL (1.20-3.40); #Monocytes 0.9 thou/uL (0.11-0.59); #Neutrophils 5.8 thou/uL (1.40-6.50); %Basophils 0.3 % (0.0-1.0); %Eosinophils 1.9 % (0.0-10.0); %Lymphocytes 13.7 % (21.0-51.0); %Monocytes 11.3 % (0.0-10.0); %Neutrophils 72.8 % (42.0-75.0); Hemoglobin 10.1 g/dL (14.0-18.0); Mean Corpuscular HGB CONC 34.5 g/dL (32.0-36.0); Mean Corpuscular Hemoglobin 31.1 pg (27.0-31.0); Mean Corpuscular Volume 90.4 fL (78.0-98.0); Mean Platelet Volume 8.4 fL (7.4-10.4); Platelet Count 193 thou/uL (130-400); RBC Distribution Width 12.3 % (11.5-14.5); Red Blood Cell (RBC) Count 3.23 mill/uL (4.70-6.10)
[2019-09-22 05:34] LABS: Anion Gap 13 mmol/L (10-20); BUN (Urea Nitrogen) 31 mg/dL (8.4-25.7); Calc. Creatinine Clearance 60 mL/min (70-130); Calcium 9.2 mg/dL (7.8-10.44); Carbon Dioxide 30 mmol/L (23-31); Chloride 93 mmol/L (98-107); Estimated GFR-MDRD 48; Glucose 107 mg/dL (83-110); Potassium 4.1 mmol/L (3.5-5.1); Sodium 132 mmol/L (136-145)
[2019-09-22] MEDS: Aspirin 325 MG TAB PO SCH (09:01)
--- NOTE | 2019-09-22 12:47 | PDOC.CPN ---
- Subjective Date: 09/22/19 Time: 08:30 Interval history: The pt seen and examined. No overnight events. No cardiac complaints - Objective Allergies/Adverse Reactions: Allergies Allergy/AdvReac Type Severity Reaction Status Date / Time No Known Allergies Allergy Verified 09/15/19 11:21 Visit Medications: Current Medications Al Hydroxide/Mg Hydroxide (Maalox) 30 ml PO Q4H PRN PRN Reason: Indigestion Albuterol/Ipratropium (Duoneb) 3 ml NEB [id number] PRN PRN Reason: SHORTNESS OF BREATH Last Admin: 09/20/19 09:47 Dose: 3 ml Albuterol/Ipratropium (Duoneb) 3 ml NEB TID-RT OMER Last Admin: 09/22/19 07:02 Dose: 3 ml Aspirin (Aspirin) 325 mg PO DAILY [facility] Last Admin: 09/22/19 09:01 Dose: 325 mg Bisacodyl (Dulcolax) 10 mg PO Q12H PRN PRN Reason: Constipation Last Admin: 09/17/19 16:50 Dose: 10 mg Bisacodyl (Dulcolax) 10 mg [place] Q12H PRN PRN Reason: Constipation Guaifenesin/Dextromethorphan (Robitussin Dm) 15 ml PO Q4H PRN PRN Reason: Cough Ondansetron HCl (Zofran) 4 mg IVP Q6H PRN PRN Reason: Nausea/Vomiting Last Admin: 09/17/19 16:30 Dose: 4 mg Pantoprazole Sodium (Protonix) 40 mg PO DAILY [facility] Last Admin: 09/22/19 09:01 Dose: 40 mg Sodium Chloride (Flush - Normal Saline) 10 ml IVF PRN PRN PRN Reason: Saline Flush Tramadol HCl (Ultram) 50 mg PO Q6H PRN PRN Reason: Pain Last Admin: 09/22/19 04:30 Dose: 50 mg Vital Signs & Weight: Vital Signs Temp Pulse Resp BP Pulse Ox 09/22/19 11:30 97.8 F 92 18 102/57 L 93 L 09/22/19 08:04 98.7 F 99 18 103/64 92 L 09/22/19 07:02 82 16 94 L 09/22/19 04:00 98.2 F 88 18 100/60 Weight 198 lb 8 oz - Quality Measures Condition: Coronary Artery Disease CV meds: Beta Arthur: No (start when BP stable. ), GALEN/ARB: No (as above), Statin: No, ASA: No - Physical Exam General: alert & oriented x3 HEENT: mucus membranes moist Neck: supple neck Cardiac: regular rate and rhythm, S1/S2 Lungs: clear to auscultation, decreased breath sounds Neuro: cranial nerve 2-12 intact Skin: clear Musculoskeletal: decreased range of motion - Labs Result Diagrams: 09/22/19 04:45 09/22/19 04:45 - Telemetry Sinus rhythms and dysrhythmias: sinus rhythm - Assessment/Plan Assessment/Plan: 1. S/P Bioprosthetic AV Replacement, (#29 bioprosthetic valve) + CABG x3 with ANTUNEZ-LAD, RSVG-PDA, and RSVG-acute Marginal on 09/16/2019 - stable; will start low dose betablockers when BP tolerates. 2. Hyponatremia - Lasix was stopped. Cont. to monitor 3. Hx of Prostate Cancer 4. Hypotension - stable MAR reviewed Pt. seen and eval. by me. I agree with the A/P by the DECK MECHANIC. Chest clear. RRR. no edema. Stable s/p CABG+AVR. BP on the low side. Willl re-evaluate in the future and try to initiate betablockers. karena
--- NOTE | 2019-09-23 08:21 | PDOC.CPN ---
- Subjective Date: 09/23/19 Time: 08:23 Interval history: The pt seen and examined. No overnight events. No cardiac complaints. He has had intermittent dizziness with movement. - Objective Allergies/Adverse Reactions: Allergies Allergy/AdvReac Type Severity Reaction Status Date / Time No Known Allergies Allergy Verified 09/15/19 11:21 Visit Medications: Current Medications Al Hydroxide/Mg Hydroxide (Maalox) 30 ml PO Q4H PRN PRN Reason: Indigestion Albuterol/Ipratropium (Duoneb) 3 ml NEB [id number] PRN PRN Reason: SHORTNESS OF BREATH Last Admin: 09/20/19 09:47 Dose: 3 ml Albuterol/Ipratropium (Duoneb) 3 ml NEB TID-RT [facility] Last Admin: 09/23/19 06:49 Dose: 3 ml Aspirin (Aspirin) 325 mg PO DAILY [facility] Last Admin: 09/22/19 09:01 Dose: 325 mg Bisacodyl (Dulcolax) 10 mg PO Q12H PRN PRN Reason: Constipation Last Admin: 09/17/19 16:50 Dose: 10 mg Bisacodyl (Dulcolax) 10 mg [place] Q12H PRN PRN Reason: Constipation Guaifenesin/Dextromethorphan (Robitussin Dm) 15 ml PO Q4H PRN PRN Reason: Cough Ondansetron HCl (Zofran) 4 mg IVP Q6H PRN PRN Reason: Nausea/Vomiting Last Admin: 09/17/19 16:30 Dose: 4 mg Pantoprazole Sodium (Protonix) 40 mg PO DAILY [facility] Last Admin: 09/22/19 09:01 Dose: 40 mg Sodium Chloride (Flush - Normal Saline) 10 ml IVF PRN PRN PRN Reason: Saline Flush Tramadol HCl (Ultram) 50 mg PO Q6H PRN PRN Reason: Pain Last Admin: 09/22/19 21:39 Dose: 50 mg Vital Signs & Weight: Vital Signs Temp Pulse Resp BP BP Pulse Ox 09/23/19 07:30 97.5 F L 98 18 136/67 97 09/23/19 06:49 81 16 95 09/23/19 04:00 97.9 F 86 16 100/57 L 95 Weight 198 lb 8 oz - Quality Measures Condition: Coronary Artery Disease CV meds: Beta Arthur: No (start when BP stable. ), GALEN/ARB: No (as above), Statin: No, ASA: No - Physical Exam General: alert & oriented x3 HEENT: mucus membranes moist Neck: supple neck Cardiac: regular rate and rhythm, S1/S2 Lungs: clear to auscultation Neuro: cranial nerve 2-12 intact Skin: other - Labs Result Diagrams: 09/22/19 04:45 09/22/19 04:45 - Telemetry Sinus rhythms and dysrhythmias: sinus rhythm - Assessment/Plan Assessment/Plan: 1. S/P Bioprosthetic AV Replacement, (#29 bioprosthetic valve) + CABG x3 with ANTUNEZ-LAD, RSVG-PDA, and RSVG-acute Marginal on 09/16/2019 - stable; will start BBlocker when his VS is more stable. 2. Hyponatremia - Lasix was stopped. Cont. to monitor 3. Hx of Prostate Cancer 4. Hypotension - Possible orthostatic Hypotension; encourage to have more fluid. MAR reviewed * From Cardiac standpoint, the pt is stable to tx to rehab if his VS is stable * The pt will f/u with Dr Dawn' office within 1-2 wks after the pt is d/christiano from Rehab. Pt. seen and eval. by me. I agree with the A/P by the SODA DRIER FEEDER but he has since developed atrial flutter with a 2:1 block since she saw him this AM. HR is in the 150-160 range. He feels weak. Chest clear. Tachycardia. Start amiodarone, if he does not convert then plan for cardioversion in AM and continue amiodarone for 1 month.
[2019-09-23] MEDS ORDERED: Carvedilol 3.125 MG TAB PO SCH ×2 (08:45→17:00)
[2019-09-23] MEDS: Aspirin 325 MG TAB PO SCH (09:07)
[2019-09-23] MEDS ORDERED: Amiodarone 150 MG in Dextrose 5% in Water 100 ML IVPB SCH (12:45)
[2019-09-23 13:30] LABS: ALT (SGPT) 22 U/L (8-55); AST (SGOT) 22 U/L (5-34); Albumin 4.2 g/dL (3.4-4.8); Alkaline Phosphatase 65 U/L (40-110); Bilirubin, Direct 0.4 mg/dL (0.1-0.3); Bilirubin, Total 0.9 mg/dL (0.2-1.2); Magnesium 2.4 mg/dL (1.6-2.6)
[2019-09-23] MEDS ORDERED: Sodium Chloride 0.9% 250 ML 250 ML IVPB SCH (13:30)
[2019-09-23] MEDS: Sodium Chloride 0.9% 1,000 ML IV SCH ×2 (14:46→20:26)
[2019-09-23] MEDS: Amiodarone 450 MG in Dextrose 5% in Water 250 ML IVPB SCH ×2 (14:46→23:55)
[2019-09-23] MEDS ORDERED: Digoxin 0.5 MG/2 ML AMP SLOW IVP SCH (17:00)
[2019-09-23] MEDS: traMADol HCl 50 MG TAB PO PRN (20:29)
[2019-09-23] MEDS: Digoxin 0.5 MG/2 ML AMP SLOW IVP SCH (23:43)
[2019-09-24] MEDS: traMADol HCl 50 MG TAB PO PRN ×3 (04:05→20:01)
[2019-09-24] MEDS: Digoxin 0.5 MG/2 ML AMP SLOW IVP SCH (06:17)
[2019-09-24] MEDS ORDERED: PROPOFOL 20 ML ONE (08:23)
--- NOTE | 2019-09-24 09:24 | PDOC.CPN ---
- Subjective Date: 09/24/19 Time: 09:10 - Review of Systems General: reports: fatigue. denies: fever/chills Respiratory: denies: shortness of breath Cardiovascular: denies: chest pain, edema Gastrointestinal: denies: nausea, vomiting, abd pain Musculoskeletal: reports: pain (Right arm IV infiltration.) - Objective Allergies/Adverse Reactions: Allergies Allergy/AdvReac Type Severity Reaction Status Date / Time No Known Allergies Allergy Verified 09/15/19 11:21 Visit Medications: Current Medications Al Hydroxide/Mg Hydroxide (Maalox) 30 ml PO Q4H PRN PRN Reason: Indigestion Albuterol/Ipratropium (Duoneb) 3 ml NEB [id number] PRN PRN Reason: SHORTNESS OF BREATH Last Admin: 09/20/19 09:47 Dose: 3 ml Albuterol/Ipratropium (Duoneb) 3 ml NEB TID-RT [facility] Last Admin: 09/24/19 06:57 Dose: Not Given Aspirin (Aspirin) 325 mg PO DAILY [facility] Last Admin: 09/23/19 09:07 Dose: 325 mg Bisacodyl (Dulcolax) 10 mg PO Q12H PRN PRN Reason: Constipation Last Admin: 09/17/19 16:50 Dose: 10 mg Bisacodyl (Dulcolax) 10 mg [place] Q12H PRN PRN Reason: Constipation Guaifenesin/Dextromethorphan (Robitussin Dm) 15 ml PO Q4H PRN PRN Reason: Cough Amiodarone HCl 450 mg/ (Dextrose/Water) 259 mls @ 0 mls/hr IVPB INF [facility] Last Admin: 09/23/19 23:55 Dose: 259 mls Sodium Chloride (Normal Saline 0.9%) 1,000 mls @ 100 mls/hr IV .Q10H [facility] Last Admin: 09/23/19 20:26 Dose: 1,000 mls Ondansetron HCl (Zofran) 4 mg IVP Q6H PRN PRN Reason: Nausea/Vomiting Last Admin: 09/17/19 16:30 Dose: 4 mg Pantoprazole Sodium (Protonix) 40 mg PO DAILY [facility] Last Admin: 09/23/19 09:07 Dose: 40 mg Sodium Chloride (Flush - Normal Saline) 10 ml IVF PRN PRN PRN Reason: Saline Flush Sodium Chloride (Flush - Normal Saline) 10 ml IVF Q12HR OMER Last Admin: 09/23/19 20:22 Dose: Not Given Tramadol HCl (Ultram) 50 mg PO Q6H PRN PRN Reason: Pain Last Admin: 09/24/19 04:05 Dose: 50 mg Vital Signs & Weight: Vital Signs Temp Pulse Resp BP Pulse Ox 09/24/19 06:17 61 09/24/19 03:18 98 F 61 17 113/61 92 L 09/23/19 23:43 136 H Weight 198 lb 12.8 oz - Quality Measures Condition: Coronary Artery Disease CV meds: Beta Arthur: No (start when BP stable. ), GALEN/ARB: No (as above), Statin: No, ASA: No - Physical Exam General: alert & oriented x3 HEENT: normocephaly Neck: supple neck, no JVD/HJR Cardiac: tachycardia (atrial flutter on monitor) Lungs: clear to auscultation Neuro: grossly intact Abdomen: unremarkable Extremities: no cyanosis, no edema Musculoskeletal: normal range of motion - Labs Result Diagrams: 09/22/19 04:45 09/22/19 04:45 - Telemetry Supraventricular conduction: atrial flutter - Assessment/Plan Assessment/Plan: 1. S/P Bioprosthetic AV Replacement, (#29 bioprosthetic valve) + CABG x3 with ANTUNEZ-LAD, RSVG-PDA, and RSVG-acute Marginal on 09/16/2019 - stable; will start BBlocker when his VS is more stable. 2. Hyponatremia - Lasix was stopped. Cont. to monitor 3. Hx of Prostate Cancer 4. Hypotension - Possible orthostatic Hypotension; encourage to have more fluid. 5. Atrial flutter with 2:1 block. MAR reviewed * From Cardiac standpoint, the pt is stable except for the atrial flutter and RVR. Plan for cardioversion, tx to rehab when rhythm and VS stable. Continue amiodarone for 3-4 weeks. * The pt will f/u with Dr Danw' office within 1-2 wks after the pt is d/christiano from Rehab.
[2019-09-24] MEDS ORDERED: HYDROcodone/Acetaminophen 5/325 mg Tablet PO PRN (10:02)
[2019-09-24] MEDS: Aspirin 325 MG TAB PO SCH (10:12)
[2019-09-24] MEDS: Amiodarone 200 MG TAB PO SCH ×3 (10:12→20:02)
[2019-09-24] MEDS: Sodium Chloride 0.9% 1,000 ML IV SCH ×2 (10:16→20:13)
[2019-09-24] MEDS ORDERED: PROPOFOL 200 MG/20 ML VIAL ONE (11:04)
--- NOTE | 2019-09-24 23:43 | OP ---
DATE OF PROCEDURE: 09/24/19 INDICATION FOR PROCEDURE: This is a 73-year-old patient status post aortic valve replacement and bypass surgery who yesterday d eveloped atrial flutter with a rapid ventricular response. He had been placed on IV Amiodarone. He co ntinued to have significant rapid heart rate. He was also given IV digoxin. The heart rate still pers isted. This morning the heart rate was in the 110s to 120s and occasionally down to 80s but showed at rial flutter. He was advised to undergo cardioversion of the atrial flutter and he was taken to the r ecovery area where under short acting propofol and using one attempt at 70 joules, he successfully co nverted back to sinus rhythm with a heart rate in the 70s and 80s. No difficulties or complications w ere encountered.
[2019-09-25] MEDS: Sodium Chloride 0.9% 1,000 ML IV SCH (05:30)
[2019-09-25] MEDS: Aspirin 325 MG TAB PO SCH (09:29)
[2019-09-25] MEDS: Amiodarone 200 MG TAB PO SCH (09:29)
[2019-09-25 11:28] VITALS: TEMP 98.2
--- NOTE | 2019-09-25 11:35 | DIS ---
DATE OF ADMISSION: 09/16/2019 DATE OF DISCHARGE: 09/25/2019 PROCEDURES: 1. Aortic valve replacement #29 Inspiris bioprosthetic valve. 2. Coronary artery bypass grafting x3-left internal mammary artery to left anterior descending, saphenous vein graft to patent ductus arteriosus and acute marginal. DESCRIPTION OF HOSPITAL STAY: Mr. Varghese was brought into the hospital for elective AVR, CABG. He has done well postoperatively. He had a bout of atrial fibrillation requiring amiodarone and subsequent cardioversion. He has also been slow to mobilize and is being transferred over to [facility] for further strengthening prior to going home. At the time of discharge, he is ambulatory, tolerating regular diet, having good bowel and bladder function. Incisions are clean, dry, and without evidence of infection. DISCHARGE MEDICATIONS: 1. Aspirin 325 mg daily. 2. Amiodarone 400 mg b.i.d. x2 weeks, then daily x2 weeks, then stop. 3. His home omeprazole and Lupron. FOLLOWUP: With me in [address] Dawn in a month. Job ID: [id number]
[2019-09-25 11:42] VITALS: BP 125/62
--- NOTE | 2019-09-25 15:40 | PDOC.CPN ---
- Subjective Date: 09/25/19 Time: 15:42 Interval history: The pt seen and examined. No overnight events. No cardiac complaints. - Objective Allergies/Adverse Reactions: Allergies Allergy/AdvReac Type Severity Reaction Status Date / Time No Known Allergies Allergy Verified 09/15/19 11:21 Vital Signs & Weight: Vital Signs Temp Pulse Pulse Resp BP BP Pulse Ox 09/25/19 11:05 98.2 F 77 18 113/57 L 95 09/25/19 08:55 86 125/62 09/25/19 07:25 98.6 F 74 16 114/58 L 95 09/25/19 03:57 98.5 F 74 18 108/59 L 96 Weight 200 lb 4.8 oz - Quality Measures Condition: Coronary Artery Disease CV meds: Beta Arthur: No (start when BP stable. ), GALEN/ARB: No (as above), Statin: No, ASA: No - Physical Exam General: alert & oriented x3 HEENT: mucus membranes moist Neck: supple neck Cardiac: regular rate and rhythm, S1/S2 Lungs: clear to auscultation Neuro: cranial nerve 2-12 intact Skin: clear Musculoskeletal: decreased range of motion - Labs Result Diagrams: 09/22/19 04:45 09/22/19 04:45 - Telemetry Sinus rhythms and dysrhythmias: sinus rhythm - Assessment/Plan Assessment/Plan: 1. S/P Bioprosthetic AV Replacement, (#29 bioprosthetic valve) + CABG x3 with ANTUNEZ-LAD, RSVG-PDA, and RSVG-acute Marginal on 09/16/2019 - stable; will start BBlocker when his VS is more stable. 2. Hyponatremia - Lasix was stopped. Cont. to monitor 3. Hx of Prostate Cancer 4. Hypotension - Possible orthostatic Hypotension; encourage to have more fluid. 5. Atrial flutter with 2:1 block. with s/p SHANTANU and DCCV on 09/24/2019 - converted back to SR; on ASA 325mg qd and Amiodarone for 3-4 wks; MAR reviewed * From Cardiac standpoint, the pt is stable to tx to rehab. * The pt will f/u with Dr Dawn' office within 1-2 wks after the pt is d/christiano from Rehab. Pt. seen and eval. by me. I agree with the A/P by the DOOR TENDER. Chest clear. RRR. gjmays
--- NOTE | 2019-09-26 14:25 | EKG ---
Test Reason : POST CARDIOVERSION Blood Pressure : / mmHG Vent. Rate : 084 BPM Atrial Rate : 084 BPM P-R Int : 224 ms QRS Dur : 098 ms QT Int : 378 ms P-R-T Axes : 057 019 109 degrees QTc Int : 446 ms Sinus rhythm with 1st degree A-V block Nonspecific ST and T wave abnormality Abnormal ECG When compared with ECG of 16-SEP-2019 12:28, [place] interval has increased Left anterior fascicular block is no longer Present Nonspecific T wave abnormality now evident in Inferior leads T wave inversion more evident in Lateral leads Confirmed by NIHARIKA ALONZO (2) on 09/26/2019 2:25:45 PM Referred By: JUANA Confirmed By:NIHARIKA ALONZO
== END 2019-09-25 13:45 | DRG 220 ==
LOC: SURG A 09-16 06:09 → CCU 09-16 11:14 → 2NO 09-18 11:08 → CCU 09-18 13:50 → 2NO 09-18 14:36
PROVIDERS: ADMIT Thoracic Surgery (Cardiothoracic Vascular Surgery); ATTEND Thoracic Surgery (Cardiothoracic Vascular Surgery)
PROC: 02RF08Z Replacement of Aortic Valve with Zooplastic Tissue, Open Approach (ICD-10-PCS; principal; 2019-09-16)
PROC: 02100Z9 Bypass Coronary Artery, One Artery from Left Internal Mammary, Open Approach (ICD-10-PCS; 2019-09-16)
PROC: 021109W Bypass Coronary Artery, Two Arteries from Aorta with Autologous Venous Tissue, Open Approach (ICD-10-PCS; 2019-09-16)
PROC: 06BQ4ZZ Excision of Left Saphenous Vein, Percutaneous Endoscopic Approach (ICD-10-PCS; 2019-09-16)
PROC: 5A1221Z Performance of Cardiac Output, Continuous (ICD-10-PCS; 2019-09-16)
PROC: 5A2204Z Restoration of Cardiac Rhythm, Single (ICD-10-PCS; 2019-09-24)
PROC: B24BZZ4 Ultrasonography of Heart with Aorta, Transesophageal (ICD-10-PCS; 2019-09-24)
DX: I25.10 Atherosclerotic heart disease of native coronary artery without angina pectoris (principal); E87.1 Hypo-osmolality and hyponatremia; J90 Pleural effusion, not elsewhere classified; I48.92 Unspecified atrial flutter; I35.0 Nonrheumatic aortic (valve) stenosis; I10 Essential (primary) hypertension; Z79.899 Other long term (current) drug therapy; Z90.49 Acquired absence of other specified parts of digestive tract; Z85.46 Personal history of malignant neoplasm of prostate; D64.9 Anemia, unspecified; I95.1 Orthostatic hypotension
CPT/HCPCS: 36415; 36416; 36430; 71045; 71046; 80048; 80076; 82533; 83735; 84443; 85025; 85027; 85610; 85730; 86850; 86900; 86901; 92960; 93005; 93010; 93798; 94640; J0282; J0670; J0690; J1100; J1160; J1265; J1642; J1644; J1815; J1885; J1940; J2001; J2250; J2405; J2440; J2704; J3010; J3370; J3475; J3480; J3490; J7070; J7620; P9045; S0017; S0028

== ENCOUNTER 2019-10-10 21:57 | Observation (INO) | payer MEDICARE ==
[~2019-10-10 21:57] MED LIST: Iopamidol-370 76% 500 ML 1 ML ONE
[2019-10-10 22:23] LABS: #Eosinphils 0.4 thou/uL (0.0-0.7); #Lymphocytes 1.3 thou/uL (1.20-3.40); #Monocytes 0.5 thou/uL (0.11-0.59); #Neutrophils 4.5 thou/uL (1.40-6.50); %Basophils 0.4 % (0.0-1.0); %Eosinophils 5.7 % (0.0-10.0); %Lymphocytes 19.8 % (21.0-51.0); %Monocytes 7.5 % (0.0-10.0); %Neutrophils 66.7 % (42.0-75.0); Hemoglobin 11.4 g/dL (14.0-18.0); Mean Corpuscular HGB CONC 33.6 g/dL (32.0-36.0); Mean Corpuscular Hemoglobin 30.8 pg (27.0-31.0); Mean Corpuscular Volume 91.5 fL (78.0-98.0); Mean Platelet Volume 7.9 fL (7.4-10.4); Platelet Count 234 thou/uL (130-400); RBC Distribution Width 13.2 % (11.5-14.5); Red Blood Cell (RBC) Count 3.71 mill/uL (4.70-6.10); White Blood Cell (WBC) Count 6.8 thou/uL (4.8-10.8)
[2019-10-10 22:51] LABS: ALT (SGPT) 12 U/L (8-55); AST (SGOT) 12 U/L (5-34); Albumin 4.2 g/dL (3.4-4.8); Alkaline Phosphatase 102 U/L (40-110); Anion Gap 15 mmol/L (10-20); BUN (Urea Nitrogen) 20 mg/dL (8.4-25.7); Bilirubin, Total 0.4 mg/dL (0.2-1.2); CK (CPK) 30 U/L (30-200); Calc. Creatinine Clearance 0 mL/min (70-130); Calcium 9.4 mg/dL (7.8-10.44); Carbon Dioxide 26 mmol/L (23-31); Chloride 104 mmol/L (98-107); Estimated GFR-MDRD 46; Globulin 2.7 g/dL (2.4-3.5); Glucose 111 mg/dL (83-110); Lipase 32 U/L (8-78); Potassium 3.9 mmol/L (3.5-5.1); Protein, Total 6.9 g/dL (5.8-8.1); Sodium 141 mmol/L (136-145)
--- NOTE | 2019-10-10 23:00 | RAD ---
Chest one view HISTORY: Dyspnea. COMPARISON: 09/20/2019. FINDINGS: Cardiac silhouette is magnified and upper limits of normal in size. Pulmonary vasculature i s unremarkable. Mediastinum is midline with postoperative changes. No lobar consolidation or evidence of pneumothorax. IMPRESSION: No active cardiopulmonary abnormalities are demonstrated.
[2019-10-10 23:12] LABS: CKMB 0.5 ng/mL (0-6.6)
--- NOTE | 2019-10-10 23:41 | CT ---
CT arteriogram chest with IV contrast and 3-D imaging HISTORY: Chest pain. Recent surgery. FINDINGS: There is good contrast opacification of the pulmonary arteries and thoracic aorta with bovi ne origin of the great vessels at the aortic arch. Mild dependent bibasilar atelectasis. Small amount of left pleural fluid. Minimal stranding remaining within the mediastinal fat. No evidence of pneumothorax or mediastinal adenopathy. IMPRESSION: Small amount of residual left pleural fluid and other findings from recent mediastinal mike rgery. No evidence of pulmonary embolus or other acute abnormality.
[2019-10-11] MEDS ORDERED: Nitroglycerin 2% Ointment 1 INCH/1 GM Packet ONE (00:07)
[2019-10-11] MEDS ORDERED: Aspirin Chewable 81 MG TAB ONE (00:07)
--- NOTE | 2019-10-11 00:40 | PDOC.HHP ---
Hospitalist HPI - History of Present Illness Chest discomfort History of Present Illness: 73 year old male with PMH prostate cancer, CAD, HTN, AVR/CABG 3 weeks ago who presents for chest discomfort and shortness of breath x 2 hours prior to admission, he describes not as pain but as discomfort on L side, he expresses frustration at air hunger but is not in distress. AVR/CABG were on the by Dr Lane, patient required cardioversion for atrial flutter and was discahrged on amiodarone and ASA on the . Was doing well until today. In ED, satting well on room air, vitals notable for pulse in 40-50 range. Hospitalist ROS - Review of Systems Constitutional: denies: fever, chills Eyes: denies: pain, vision change, redness ENT: denies: ear discharge, mouth swelling Respiratory: reports: shortness of breath. denies: cough, dry, pleuritic pain, sputum, wheezing Cardiovascular: reports: chest pain. denies: palpitations, light headedness Gastrointestinal: denies: nausea, vomiting Genitourinary: denies: dysuria, frequency Musculoskeletal: denies: neck pain, shoulder pain Skin: denies: rash, lesions Neurological: denies: weakness, numbness All other systems reviewed; all pertinent +/- noted in HPI/Subj - Medication Medications: reviewed only 2 meds asa and amio Hospitalist History - Past Medical History Other Medical History: prostate cancer CAD aflutter - Past Surgical History Other Surgical History: CABG x 3v AVR - Family History Family History: reports: no pertinent history - Social History Smoking Status: Never smoker Alcohol: reports: None Drugs: reports: none - Exam General Appearance: NAD, awake alert Eye: PERRL, anicteric sclera ENT: normocephalic atraumatic, no oropharyngeal lesions Neck: supple, no JVD Heart: no murmur Heart - other findings: regular, bradycardic Respiratory: CTAB, no wheezes, no rales Gastrointestinal: soft, non-tender, non-distended, normal bowel sounds Extremities: no cyanosis, no clubbing, no edema Skin: no lesions, no rashes Skin - other findings: scar healing well no erythema or edema Neurological: cranial nerve grossly intact, no focal deficits Musculoskeletal: normal tone, normal strength Psychiatric: normal affect, normal behavior, A&O x 3 Hospitalist Results - Labs Result Diagrams: 10/10/19 22:11 10/10/19 22:11 Lab results: WBC 6.8 thou/uL (4.8-10.8) 10/10/19 22:11 Hgb 11.4 g/dL (14.0-18.0) L 10/10/19 22:11 Hct 34.0 % (42.0-52.0) L 10/10/19 22:11 MCV 91.5 fL (78.0-98.0) 10/10/19 22:11 Plt Count 234 thou/uL (130-400) 10/10/19 22:11 Neutrophils % 66.7 % (42.0-75.0) 10/10/19 22:11 Sodium 141 mmol/L (136-145) 10/10/19 22:11 Potassium 3.9 mmol/L (3.5-5.1) 10/10/19 22:11 Chloride 104 mmol/L (98-107) 10/10/19 22:11 Carbon Dioxide 26 mmol/L (23-31) 10/10/19 22:11 BUN 20 mg/dL (8.4-25.7) 10/10/19 22:11 Creatinine 1.50 mg/dL (0.7-1.3) H 10/10/19 22:11 Glucose 111 mg/dL (83-110) H 10/10/19 22:11 Calcium 9.4 mg/dL (7.8-10.44) 10/10/19 22:11 Total Bilirubin 0.4 mg/dL (0.2-1.2) 10/10/19 22:11 AST 12 U/L (5-34) 10/10/19 22:11 ALT 12 U/L (8-55) 10/10/19 22:11 Alkaline Phosphatase 102 U/L (40-110) 10/10/19 22:11 Creatine Kinase 30 U/L (30-200) 10/10/19 22:11 CK-MB (CK-2) 0.5 ng/mL (0-6.6) 10/10/19 22:11 Troponin I 0.033 ng/mL (< 0.028) H 10/10/19 22:11 B-Natriuretic Peptide 225.9 pg/mL (0-100) H 10/10/19 22:11 Serum Total Protein 6.9 g/dL (5.8-8.1) 10/10/19 22:11 Albumin 4.2 g/dL (3.4-4.8) 10/10/19 22:11 Lipase 32 U/L (8-78) 10/10/19 22:11 - EKG Interpretation EKG: rate 58, sinus, nonspecific t wave changes, no acute st segment findings Hospitalist H&P A/P - Plan Plan: 73 year old male with PMH prostate cancer presents for onset of chest pain, in ED found to have borderline troponins and new bradycardia. # chest pain, shortness of breath - some signs of CHF, echo in september of this year with EF 55-60%, however also appears to be bradycardic which could be contributing, ED discussed wtih Dr Zhao who recommended obervation - admit to telemetry - trend enzymes - continue asa, hold amiodarone - consult cardiology, CTS # bradycardia - perhaps symtomatic, unsure of exact cause of symptoms but this is a new finding - this new finding could be related to amiodarone, which may have interation with leupron for prostate cancer. it could also be due to recent surgery and is a known complication - consult cardiology, CTS # acute diastolic CHF - suspect due to arrhtymia or recent surgery - give lasix IVF once and monitor response
[2019-10-11 01:49] LABS: Troponin I Less than 0.010 ng/mL (< 0.028)
[2019-10-11] MEDS ORDERED: Furosemide 40 MG/4 ML VIAL SLOW IVP SCH (02:15)
[2019-10-11] MEDS ORDERED: HYDROcodone/Acetaminophen 5/325 mg Tablet PO PRN (02:49)
[2019-10-11] MEDS ORDERED: Acetaminophen 325 MG TAB PO PRN (02:49)
[2019-10-11] MEDS ORDERED: Bisacodyl 10 MG SUPP PR PRN (02:49)
[2019-10-11] MEDS ORDERED: Bisacodyl 5 MG TAB PO PRN (02:49)
[2019-10-11 03:08] LABS: Troponin I 0.027 ng/mL (< 0.028)
[2019-10-11] MEDS ORDERED: Nitroglycerin 2% Ointment 1 INCH/1 GM Packet TOP SCH (06:00)
[2019-10-11 06:09] LABS: #Eosinphils 0.3 thou/uL (0.0-0.7); #Monocytes 0.5 thou/uL (0.11-0.59); #Neutrophils 4.1 thou/uL (1.40-6.50); %Basophils 0.7 % (0.0-1.0); %Eosinophils 5.6 % (0.0-10.0); %Lymphocytes 16.9 % (21.0-51.0); %Monocytes 8.2 % (0.0-10.0); %Neutrophils 68.6 % (42.0-75.0); Hemoglobin 9.9 g/dL (14.0-18.0); Mean Corpuscular HGB CONC 33.3 g/dL (32.0-36.0); Mean Corpuscular Hemoglobin 30.5 pg (27.0-31.0); Mean Corpuscular Volume 91.8 fL (78.0-98.0); Platelet Count 194 thou/uL (130-400); RBC Distribution Width 13.2 % (11.5-14.5); Red Blood Cell (RBC) Count 3.24 mill/uL (4.70-6.10)
[2019-10-11 06:24] LABS: Anion Gap 12 mmol/L (10-20); BUN (Urea Nitrogen) 18 mg/dL (8.4-25.7); Calc. Creatinine Clearance 0 mL/min (70-130); Calcium 8.7 mg/dL (7.8-10.44); Carbon Dioxide 24 mmol/L (23-31); Chloride 107 mmol/L (98-107); Estimated GFR-MDRD 53; Glucose 104 mg/dL (83-110); Magnesium 2.1 mg/dL (1.6-2.6); Sodium 139 mmol/L (136-145)
[2019-10-11 06:28] LABS: Troponin I 0.016 ng/mL (< 0.028)
[2019-10-11 06:43] LABS: Free T4 (Free Thyroxine) 1.08 ng/dL (0.70-1.48); Thyroid Stimulating Hormone 7.309 uIU/mL (0.35-4.94)
[2019-10-11] MEDS ORDERED: Enoxaparin Sodium 40 MG/0.4 ML SYRINGE SC SCH (09:00)
[2019-10-11] MEDS ORDERED: Aspirin 325 MG TAB PO SCH (09:00)
[2019-10-11] MEDS ORDERED: Aspirin 325 MG TAB ONE (09:48)
[2019-10-11] MEDS ORDERED: Enoxaparin Sodium 40 MG/0.4 ML SYRINGE ONE (09:48)
--- NOTE | 2019-10-11 12:02 | PDOC.EVN ---
Event Note - Event Note Event Note: Doing better. Says he is ready to go home. Breathing is back to normal. He has been up to the bathroom and had no problems. He thinks there may be a little bit of panic associated with his initial presentation once the SOB started. He has not been using the IS at home. Peak is only 1200. HR 50 +/- 5. BP 127/65. Resp 20 and SaO2 96% on 2lpm. Gen stable. Heart RRR , stef. Lungs with minimal bibasilar rales. Mild ankle edema. SOB - Remove oxygen, nitro and get him up and ambulating. If of, can likely DC home. Will discuss with cardiology first. Holding amio. Encouraged increased use of IS at home.
[2019-10-11 13:16] LABS: Troponin I 0.027 ng/mL (< 0.028)
[2019-10-11 15:25] VITALS: BP 151/82
== END 2019-10-11 15:37 | disposition home or self-care (01) ==
LOC: ERS 21:57 → ERHOLD 10-11 00:35
PROVIDERS: ADMIT Internal Medicine; ATTEND Internal Medicine
DX: I11.0 Hypertensive heart disease with heart failure (principal); I50.31 Acute diastolic (congestive) heart failure; R00.1 Bradycardia, unspecified; I25.10 Atherosclerotic heart disease of native coronary artery without angina pectoris; Z85.46 Personal history of malignant neoplasm of prostate; Z95.1 Presence of aortocoronary bypass graft; Z95.2 Presence of prosthetic heart valve
CPT/HCPCS: 36415; 71045; 71275; 80048; 80053; 82550; 82553; 83690; 83735; 83880; 84439; 84443; 84484; 85025; 85379; 93005; 96360; J1650; Q9967

== ENCOUNTER 2020-09-26 07:58 | Outpatient (CLI) | payer MEDICARE ==
--- NOTE | 2020-09-26 09:58 | CT ---
CT ABDOMEN AND PELVIS WITH CONTRAST: Oral contrast was administered. INDICATION: Left-sided abdominal pain. History of prostatectomy. Comparison made to CT abdomen and pelvis dated 07/01/2016. FINDINGS: Lung bases clear. Liver, spleen, and pancreas unremarkable. Stomach unremarkable. Duodenal diverticulum again noted. This was described on the prior exam and measures up to 5.0 cm ish meter. It arises from the second portion of the duodenum. Adrenal glands normal. Kidneys unremarkable. Small bowel loops normal. Colon shows diverticulosis of the left colon and sigmoid. Aorta normal caliber. No adenopathy. No free fluid. Images through the pelvis show evidence of prostatectomy. No adenopathy seen. Osseous structures show degenerative disc changes at L5-S1. The visualized vertebral bodies maintain height and alignment with degenerative osteophytes. No evidence of lytic or blastic osseous process. IMPRESSION: 1. Duodenal diverticulum again noted, not significantly changed from prior exam. 2. Diverticulosis. 3. No acute process identified. POS: AGW
[2020-09-26] MEDS ORDERED: Iopamidol 370 76% 100 ML VIAL ONE (12:54)
== END 2020-09-26 07:59 | disposition home or self-care (01) ==
LOC: BICCT 07:58
PROVIDERS: ATTEND Internal Medicine Gastroenterology
DX: R10.32 Left lower quadrant pain (principal); K57.10 Diverticulosis of small intestine without perforation or abscess without bleeding; K57.30 Diverticulosis of large intestine without perforation or abscess without bleeding
CPT/HCPCS: 74177; 82565; Q9967

== ENCOUNTER 2021-01-26 09:23 | Outpatient (CLI) | payer MEDICARE | END 2021-01-26 09:24 | disposition home or self-care (01) | LOC: NM 09:23 | PROVIDERS: ATTEND Internal Medicine Hematology & Oncology | DX: C61 Malignant neoplasm of prostate (principal); R97.20 Elevated prostate specific antigen [PSA] | CPT/HCPCS: 78306; A9503 ==

== ENCOUNTER 2021-12-11 08:18 | Outpatient (CLI) | payer MEDICARE | END 2021-12-11 08:19 | disposition home or self-care (01) | LOC: CT 08:18 | PROVIDERS: ATTEND Internal Medicine Hematology & Oncology | DX: C61 Malignant neoplasm of prostate (principal); R97.20 Elevated prostate specific antigen [PSA]; J98.09 Other diseases of bronchus, not elsewhere classified | CPT/HCPCS: 71260; 74177; 78306; 82565; A9503 ==

== ENCOUNTER 2023-04-21 10:34 | Outpatient (CLI) | payer MEDICARE | END 2023-04-21 10:35 | disposition home or self-care (01) | LOC: BICCT 10:34 | PROVIDERS: ATTEND Internal Medicine Critical Care Medicine | DX: R91.8 Other nonspecific abnormal finding of lung field (principal); J98.11 Atelectasis; J98.4 Other disorders of lung | CPT/HCPCS: 71250 ==

== ENCOUNTER 2023-11-04 08:52 | Outpatient (CLI) | payer MEDICARE ==
[2023-11-04] MEDS ORDERED: Iopamidol 370 76% 100 ML VIAL ONE (10:17)
== END 2023-11-04 08:53 | disposition home or self-care (01) ==
LOC: CT 08:52
PROVIDERS: ATTEND Internal Medicine Hematology & Oncology
DX: C61 Malignant neoplasm of prostate (principal); R97.20 Elevated prostate specific antigen [PSA]; J98.4 Other disorders of lung; K57.30 Diverticulosis of large intestine without perforation or abscess without bleeding; Z90.79 Acquired absence of other genital organ(s)
CPT/HCPCS: 71260; 74177; 78306; 82565; A9503

== ENCOUNTER 2024-05-26 14:09 | Outpatient (CLI) | payer MEDICARE | END 2024-05-26 14:10 | disposition home or self-care (01) | LOC: BICCT 14:09 | PROVIDERS: ATTEND Internal Medicine Critical Care Medicine | DX: R91.8 Other nonspecific abnormal finding of lung field (principal) | CPT/HCPCS: 71250 ==